=== PATIENT | male | born 1960 ===

== ENCOUNTER 2025-03-10 07:00 | Inpatient (IN) | payer OTHER ==
[~2025-03-10] VITALS: Ht 172.7 cm; Wt 85.7 kg
[2025-03-10 08:16] VITALS: BP 150/86
[2025-03-10 08:35] LABS: BASO % 0.4 % (0.1-1.2); EOS # 0.16 (0.04-0.54); EOS % 3.1 % (0.7-7.0); HEMATOCRIT 42.1 % (40.1-51.0); LYMPH # 1.88 (1.18-3.74); LYMPH % 36.4 % (19.3-53.1); MEAN CORPUSCULAR HEMOGLOBIN 27.5 pg (25.6-32.2); MONO # 0.49 (0.24-0.82); MONO % 9.5 % (4.7-12.5); NEUT # 2.59 (1.56-6.13); PLATELET COUNT 188 K/uL (163-369); RED BLOOD COUNT 5.09 M/uL (4.63-6.08); RED CELL DISTRIBUTION WIDTH 15.1 % (11.6-14.4)
[2025-03-10 08:42] LABS: COVID-19 AG NEGATIVE (NEGATIVE)
[2025-03-10 08:58] LABS: PARTIAL THROMBOPLASTIN TIME 28.2 SECONDS (22.0-34.0); PROTHROMBIN TIME 10.9 SECONDS (9.0-11.5)
[2025-03-10 09:03] LABS: CALCIUM 9.3 mg/dL (8.5-10.1); CREATININE SERUM 1.21 mg/dL (0.70-1.30); POTASSIUM 4.44 mEq/L (3.5-5.1)
[2025-03-10 11:19] LABS: RH POSITIVE
[2025-03-26] MEDS ORDERED: SURGIFLO APPLICATOR 1 EACH APPL TOP ONE ×2 (07:13→09:15)
[2025-03-26] MEDS ORDERED: HEMOSTATIC MATRIX 1 KIT KIT TOP ONE ×2 (07:13→09:15)
[2025-03-26] MEDS ORDERED: BUPIVACAINE HCL/MPF 0.5% 30ML VIAL ONE (07:14)
[2025-03-26] MEDS ORDERED: SUGAMMADEX SODIUM 200 MG/2 ML VIAL IV ONE (08:30)
[2025-03-26] MEDS ORDERED: ENOXAPARIN SODIUM 40 MG/0.4 ML SYRINGE SUBCUTANEO ONE (09:15)
[2025-03-26] MEDS ORDERED: BUPIVACAINE HCL 30 ML VIAL IJ ONE (09:15)
[2025-03-26] MEDS ORDERED: CEFAZOLIN SODIUM 1,000 MG VIAL IV ONE (09:15)
[2025-03-26] MEDS ORDERED: ONDANSETRON HCL 2 MG/ML VIAL IV PRN (13:45)
[2025-03-26] MEDS ORDERED: OxyCODONE HCL/APAP UD (PERCOCET) PO PRN (13:45)
[2025-03-26] MEDS ORDERED: RINGERS SOLUTION,LACTATED 1,000 ML IV SCH (13:45)
[2025-03-26] MEDS ORDERED: MORPHINE SULFATE 4 MG/ML CARTRIDGE IV PRN (13:45)
[2025-03-26] MEDS ORDERED: MORPHINE SULFATE 4 MG/ML VIAL IV ONE (14:35)
[2025-03-26] MEDS ORDERED: RACEPINEPHRINE HCL 0.5 ML AMPUL IH ONE (14:42)
[2025-03-26] MEDS ORDERED: POLYETHYLENE GLYCOL 3350 17 GM BLIST.PACK PO SCH (17:00)
[2025-03-26] MEDS ORDERED: GABAPENTIN 300 MG CAPSULE PO SCH (17:00)
[2025-03-26] MEDS ORDERED: FAMOTIDINE/PF 20 MG/2 ML VIAL IV SCH (21:00)
[2025-03-26] MEDS ORDERED: CEFAZOLIN SODIUM 1,000 MG VIAL IV SCH (21:00)
[2025-03-26 21:25] VITALS: BP 152/80; O2SAT 95
[2025-03-26 23:46] VITALS: BP 143/81; O2SAT 98
[2025-03-27 08:00] VITALS: BP 162/85; O2SAT 95
[2025-03-27 08:40] LABS: BASO % 0.2 % (0.1-1.2); EOS # 0.01 (0.04-0.54); EOS % 0.1 % (0.7-7.0); HEMATOCRIT 38.3 % (40.1-51.0); HEMOGLOBIN 12.6 g/dL (13.7-17.5); LYMPH # 1.35 (1.18-3.74); LYMPH % 13.4 % (19.3-53.1); MEAN CORPUSCULAR HEMOGLOBIN 27.7 pg (25.6-32.2); MONO % 8.9 % (4.7-12.5); NEUT # 7.78 (1.56-6.13); PLATELET COUNT 204 K/uL (163-369); RED BLOOD COUNT 4.55 M/uL (4.63-6.08); RED CELL DISTRIBUTION WIDTH 15.5 % (11.6-14.4)
[2025-03-27] MEDS ORDERED: ENOXAPARIN SODIUM 40 MG/0.4 ML SYRINGE SUBCUTANEO SCH (09:00)
[2025-03-27 10:07] LABS: ALBUMIN 3.2 gm/dL (3.4-5.0); CALCIUM 8.6 mg/dL (8.5-10.1); CREATININE SERUM 1.14 mg/dL (0.70-1.30); GFR 64.27; PHOSPHOROUS 3.3 mg/dL (2.5-4.9); POTASSIUM 4.29 mEq/L (3.5-5.1)
[2025-03-27 16:31] VITALS: BP 132/74; O2SAT 95
[2025-03-28 01:00] VITALS: BP 133/86; O2SAT 98
[2025-03-28 08:00] VITALS: BP 145/88; O2SAT 99
[2025-03-28 15:46] VITALS: BP 135/58; O2SAT 91
[2025-03-28] MEDS ORDERED: FAMOtidine 20 MG TABLET PO SCH (21:00)
[2025-03-29 00:48] VITALS: BP 135/89; O2SAT 95
[2025-03-29 08:00] VITALS: BP 168/90; O2SAT 99
[2025-03-29] MEDS ORDERED: ENALAPRILAT DIHYDRATE 1.25 MG/ML VIAL IV NR (10:00)
[2025-03-29] MEDS ORDERED: ENALAPRILAT DIHYDRATE 1.25 MG/ML VIAL IV SCH (14:00)
== END 2025-03-29 11:40 | disposition home or self-care (01) | DRG 716 ==
LOC: SURG 03-26 05:15 → O/R 03-26 05:15 → SURH 03-26 07:00 → SURG 03-26 15:09
PROVIDERS: ADMIT Urology; ATTEND Urology
PROC: 07BC4ZX Excision of Pelvis Lymphatic, Percutaneous Endoscopic Approach, Diagnostic (ICD-10-PCS; 2025-03-26)
PROC: 8E0W4CZ Robotic Assisted Procedure of Trunk Region, Percutaneous Endoscopic Approach (ICD-10-PCS; 2025-03-26)
PROC: 0VB04ZZ Excision of Prostate, Percutaneous Endoscopic Approach (ICD-10-PCS; principal; 2025-03-26 07:00)
DX: C61 Malignant neoplasm of prostate (principal)

== ENCOUNTER 2025-04-14 07:37 | Outpatient (CLI) | payer OTHER | END 2025-04-14 07:44 | disposition home or self-care (01) | LOC: TOM 07:37 | PROVIDERS: ATTEND Urology | DX: C61 Malignant neoplasm of prostate (principal) | CPT/HCPCS: 72194; Q9965 ==

== ENCOUNTER 2025-05-13 08:50 | Outpatient (CLI) | payer OTHER | END 2025-05-13 08:57 | disposition home or self-care (01) | LOC: SONOGRAMA 08:50 | PROVIDERS: ATTEND Urology | DX: N15.1 Renal and perinephric abscess (principal); N39.0 Urinary tract infection, site not specified ==